=== PATIENT | male | born 1965 | race Caucasian/White ===

== ENCOUNTER → 2023-01-24 | Outpatient (CLI) | payer MEDICARE | LOC: WOUNDCARE 11:58 | PROVIDERS: ATTEND Family Medicine | DX: L89.893 Pressure ulcer of other site, stage 3 (principal); Q05.9 Spina bifida, unspecified; N18.6 End stage renal disease; D63.1 Anemia in chronic kidney disease; G82.21 Paraplegia, complete; D50.9 Iron deficiency anemia, unspecified; M62.3 Immobility syndrome (paraplegic) | CPT/HCPCS: 11042; 87070; 87205; A6212; G0463; 87077 ==

== ENCOUNTER 2023-01-31 09:19 | Outpatient (RCR) | payer MEDICARE ==
[~2023-01-31] VITALS: Ht 154.9 cm; Wt 79.5 kg
[2023-01-31 09:25] VITALS: BP 120/72
[2023-01-31] MEDS ORDERED: MEROPENEM 500 MG/NS 100 ML IVPB IV SCH ×2 (10:00)
[2023-01-31] MEDS ORDERED: DOXY100T2 PO (12:41)
[2023-01-31] MEDS ORDERED: MIRT7.5T8 PO (12:41)
[2023-01-31] MEDS ORDERED: LEVO25CA4 PO (12:41)
[2023-01-31] MEDS ORDERED: CHOL20003 PO (12:41)
[2023-01-31] MEDS ORDERED: ESCI20TA39 PO (12:41)
[2023-01-31] MEDS ORDERED: POTA-330 PO (12:41)
== END 2023-02-02 | disposition home or self-care (01) ==
LOC: SDC 09:19
PROVIDERS: ATTEND Family Medicine
DX: L89.893 Pressure ulcer of other site, stage 3 (principal); Q05.9 Spina bifida, unspecified; N18.6 End stage renal disease; G82.21 Paraplegia, complete; D50.9 Iron deficiency anemia, unspecified; M62.3 Immobility syndrome (paraplegic)
CPT/HCPCS: 36410; 76937; 96365; C1751

== ENCOUNTER → 2023-01-31 | Outpatient (CLI) | payer MEDICARE ==
[~2023-01-31] MED LIST: CHOL20003 PO; DOXY100T2 PO; ESCI20TA39 PO; LEVO25CA4 PO; MIRT7.5T8 PO; POTA-330 PO
== END ==
LOC: WOUNDCARE 11:06
PROVIDERS: ATTEND Family Medicine
DX: I96 Gangrene, not elsewhere classified (principal); L89.893 Pressure ulcer of other site, stage 3; Q05.9 Spina bifida, unspecified; G82.21 Paraplegia, complete; N18.6 End stage renal disease; D50.9 Iron deficiency anemia, unspecified; M62.3 Immobility syndrome (paraplegic)
CPT/HCPCS: 11042; A6212; G0463

== ENCOUNTER → 2023-02-09 | Outpatient (CLI) | payer MEDICARE | LOC: WOUNDCARE 10:45 | PROVIDERS: ATTEND Family Medicine | DX: L89.893 Pressure ulcer of other site, stage 3 (principal); Q05.9 Spina bifida, unspecified; N18.6 End stage renal disease; Z99.2 Dependence on renal dialysis; G82.20 Paraplegia, unspecified; D50.9 Iron deficiency anemia, unspecified; M62.3 Immobility syndrome (paraplegic); B95.62 Methicillin resistant Staphylococcus aureus infection as the cause of diseases classified elsewhere; B96.5 Pseudomonas (aeruginosa) (mallei) (pseudomallei) as the cause of diseases classified elsewhere; I96 Gangrene, not elsewhere classified | CPT/HCPCS: 11042; A6212; G0463 ==

== ENCOUNTER → 2023-02-16 | Outpatient (CLI) | payer MEDICARE | LOC: WOUNDCARE 12:17 | PROVIDERS: ATTEND Family Medicine | DX: I96 Gangrene, not elsewhere classified (principal); L89.893 Pressure ulcer of other site, stage 3; Q05.9 Spina bifida, unspecified; N18.6 End stage renal disease; G82.21 Paraplegia, complete; D50.9 Iron deficiency anemia, unspecified; M62.3 Immobility syndrome (paraplegic); Z68.33 Body mass index [BMI] 33.0-33.9, adult | CPT/HCPCS: 11042; A6212; G0463 ==

== ENCOUNTER → 2023-02-23 | Outpatient (CLI) | payer MEDICARE | LOC: WOUNDCARE 12:19 | PROVIDERS: ATTEND Family Medicine | DX: I96 Gangrene, not elsewhere classified (principal); L89.893 Pressure ulcer of other site, stage 3; Q05.9 Spina bifida, unspecified; N18.6 End stage renal disease; G82.21 Paraplegia, complete; D50.9 Iron deficiency anemia, unspecified; M62.3 Immobility syndrome (paraplegic) | CPT/HCPCS: 15271; G0463 ==

== ENCOUNTER → 2023-03-02 | Outpatient (CLI) | payer MEDICARE | LOC: WOUNDCARE 12:09 | PROVIDERS: ATTEND Family Medicine | DX: L89.893 Pressure ulcer of other site, stage 3 (principal); Q05.9 Spina bifida, unspecified; G82.21 Paraplegia, complete; N18.9 Chronic kidney disease, unspecified; D63.1 Anemia in chronic kidney disease; D50.9 Iron deficiency anemia, unspecified; M62.3 Immobility syndrome (paraplegic); I96 Gangrene, not elsewhere classified | CPT/HCPCS: 15271; G0463 ==

== ENCOUNTER → 2023-03-09 | Outpatient (CLI) | payer MEDICARE | LOC: WOUNDCARE 13:56 | PROVIDERS: ATTEND Family Medicine | DX: I96 Gangrene, not elsewhere classified (principal); L89.893 Pressure ulcer of other site, stage 3; N18.6 End stage renal disease; G82.21 Paraplegia, complete; D50.9 Iron deficiency anemia, unspecified; M62.3 Immobility syndrome (paraplegic); Q05.9 Spina bifida, unspecified | CPT/HCPCS: 15271; G0463 ==

== ENCOUNTER → 2023-03-16 | Outpatient (CLI) | payer MEDICARE | LOC: WOUNDCARE 12:25 | PROVIDERS: ATTEND Family Medicine | DX: I96 Gangrene, not elsewhere classified (principal); L89.893 Pressure ulcer of other site, stage 3; Q05.9 Spina bifida, unspecified; N18.6 End stage renal disease; G82.21 Paraplegia, complete; D50.9 Iron deficiency anemia, unspecified; M62.3 Immobility syndrome (paraplegic) | CPT/HCPCS: 15271; G0463 ==

== ENCOUNTER → 2023-03-23 | Outpatient (CLI) | payer MEDICARE | LOC: WOUNDCARE 12:17 | PROVIDERS: ATTEND Family Medicine | DX: I96 Gangrene, not elsewhere classified (principal); L89.893 Pressure ulcer of other site, stage 3; Q05.9 Spina bifida, unspecified; N18.6 End stage renal disease; G82.21 Paraplegia, complete; D50.9 Iron deficiency anemia, unspecified; M62.3 Immobility syndrome (paraplegic) | CPT/HCPCS: 15271; G0463 ==

== ENCOUNTER → 2023-03-30 | Outpatient (CLI) | payer MEDICARE | LOC: WOUNDCARE 12:17 | PROVIDERS: ATTEND Family Medicine | DX: I96 Gangrene, not elsewhere classified (principal); L89.893 Pressure ulcer of other site, stage 3; Q05.9 Spina bifida, unspecified; G82.21 Paraplegia, complete; N18.6 End stage renal disease; D50.9 Iron deficiency anemia, unspecified; M62.3 Immobility syndrome (paraplegic) ==

== ENCOUNTER → 2023-04-20 | Outpatient (CLI) | payer MEDICARE | LOC: WOUNDCARE 12:09 | PROVIDERS: ATTEND Family Medicine | DX: L89.893 Pressure ulcer of other site, stage 3 (principal); Q05.9 Spina bifida, unspecified; N18.6 End stage renal disease; Z99.2 Dependence on renal dialysis; G82.21 Paraplegia, complete; D50.9 Iron deficiency anemia, unspecified; M62.3 Immobility syndrome (paraplegic); I96 Gangrene, not elsewhere classified | CPT/HCPCS: 15271; 87070; 87077; 87205; G0463; 87186 ==

== ENCOUNTER → 2023-04-26 | Outpatient (CLI) | payer MEDICARE | LOC: WOUNDCARE 13:10 | PROVIDERS: ATTEND Family Medicine | DX: L89.893 Pressure ulcer of other site, stage 3 (principal); Q05.9 Spina bifida, unspecified; N18.6 End stage renal disease; Z99.2 Dependence on renal dialysis; G82.21 Paraplegia, complete; D50.9 Iron deficiency anemia, unspecified; M62.3 Immobility syndrome (paraplegic); I96 Gangrene, not elsewhere classified | CPT/HCPCS: 15271; G0463 ==

== ENCOUNTER → 2023-05-04 | Outpatient (CLI) | payer MEDICARE | LOC: WOUNDCARE 12:24 | PROVIDERS: ATTEND Family Medicine | DX: I96 Gangrene, not elsewhere classified (principal); L89.893 Pressure ulcer of other site, stage 3; Q05.9 Spina bifida, unspecified; N18.6 End stage renal disease; G82.21 Paraplegia, complete; D50.9 Iron deficiency anemia, unspecified; M62.3 Immobility syndrome (paraplegic) | CPT/HCPCS: 15271; G0463 ==

== ENCOUNTER → 2023-05-11 | Outpatient (CLI) | payer MEDICARE | LOC: WOUNDCARE 12:23 | PROVIDERS: ATTEND Family Medicine | DX: I96 Gangrene, not elsewhere classified (principal); L89.893 Pressure ulcer of other site, stage 3; Q05.9 Spina bifida, unspecified; N18.6 End stage renal disease; G82.21 Paraplegia, complete; D50.9 Iron deficiency anemia, unspecified; M62.3 Immobility syndrome (paraplegic) | CPT/HCPCS: 15271; G0463 ==